=== PATIENT | male | born 1960 | race African-American/Black ===

== ENCOUNTER 2022-04-18 16:01 | Emergency (ER) | payer MEDICAID, OTHER ==
[~2022-04-18] VITALS: Ht 177.8 cm; Wt 91.0 kg
[2022-04-18] MEDS ORDERED: DICYCLOMINE 10 MG/5 ML ORAL SYR PO STA (18:07)
[2022-04-18] MEDS ORDERED: MAGNESIUM/ALUMINUM HYDROXIDE/SIMETHICONE 30ML UDC PO STA (18:07)
[2022-04-18] MEDS ORDERED: ONDANSETRON 4MG ODT PO STA (18:07)
[2022-04-18] MEDS ORDERED: VISCOUS LIDOCAINE 2% 15 ML UDC PO STA (18:07)
[2022-04-18 18:49] LABS: EOSINOPHILS % 1.3 % (0.0-5.0); HEMATOCRIT. 52.2 % (42.0-52.0); HEMOGLOBIN. 17.3 g/dL (14.0-18.0); MEAN CORPUSCULAR HEMOGLOBIN 29.4 pg (28.0-32.0); MEAN CORPUSCULAR VOLUME 88.9 fL (80.0-94.0); MEAN PLATELET VOLUME 8.7 fl (7.4-10.4); MONOCYTES % 9.6 % (2.0-8.0); NEUTROPHILS % 35.1 % (40.0-76.0); PLATELET 183 x1000/uL (130-400); RED BLOOD CELL COUNT 5.87 mill/uL (4.7-6.1); RED CELL DISTRIBUTION WIDTH 13.8 % (11.6-14.6)
[2022-04-18 18:56] LABS: CHLORIDE 102 mEq/L (98-107)
[2022-04-18] MEDS ORDERED: TAMS-11 MT (19:56)
[2022-04-18] MEDS ORDERED: FAMO40TA70 MT (19:56)
[2022-04-18 20:27] VITALS: BP 133/84
== END 2022-04-18 20:28 | disposition home or self-care (01) ==
LOC: ER 16:01
DX: K29.70 Gastritis, unspecified, without bleeding (principal); N17.9 Acute kidney failure, unspecified; N40.0 Benign prostatic hyperplasia without lower urinary tract symptoms; I10 Essential (primary) hypertension; Z88.0 Allergy status to penicillin
CPT/HCPCS: 36415; 74176; 80053; 83690; 85025; 99284; Q0162